=== PATIENT | female | born 2000 | race American Indian/Alaskan Native ===

== ENCOUNTER 2022-02-20 16:19 | Emergency (ER) | payer SELFPAY ==
[2022-02-20 17:57] LABS: Hemoglobin 10.3 gm/dl (10.1-14.3); Mean Corpuscular HGB Conc 31 % (30-34); Mean Corpuscular Volume 80 fl (79-97); Red Blood Count 4.14 M/mm3 (3.65-5.03); Red Cell Distribution Width 15.4 % (13.2-15.2)
[2022-02-20 18:22] LABS: Platelet Count 282 K/mm3 (140-440)
[2022-02-20 19:17] LABS: Alanine Aminotransferase 13 units/L (7-56); Albumin 4.5 g/dL (3.9-5); Blood Urea Nitrogen 6 mg/dL (7-17); Calcium 9.5 mg/dL (8.4-10.2); Hemolysis Index 159
[2022-02-20 19:20] LABS: BUN/Creatinine Ratio 9
[2022-02-20] MEDS ORDERED: methylPREDNISolone Sod Succinate 125 MG/2 ML INJ IV ONE (20:14)
[2022-02-20] MEDS ORDERED: diphenhydrAMINE 50 MG/ML VIAL IV STA (20:14)
[2022-02-20] MEDS ORDERED: ALBUTEROL 2.5 MG/3 ML NEBU IH ONE (20:14)
[2022-02-20] MEDS ORDERED: SODIUM CHLORIDE 0.9% 1000 ML 1,000 ML IV ONE (20:14)
--- NOTE | 2022-02-20 20:49 | XRay Report ---
CHEST 1 VIEW INDICATION / CLINICAL INFORMATION: sob. Dyspnea. FINDINGS: SUPPORT DEVICES: None. HEART / MEDIASTINUM: No significant abnormality. LUNGS / PLEURA: No significant pulmonary or pleural abnormality. No pneumothorax. ADDITIONAL FINDINGS: No significant additional findings. IMPRESSION: 1. No acute findings. Signer Name: Edison Damico MD Signed: 02/20/2022 8:44 PM Workstation Name: [email or web address]
[2022-02-21 02:22] VITALS: BP 114/79
== END 2022-02-21 02:21 | disposition home or self-care (01) ==
LOC: ED 16:19
DX: R11.2 Nausea with vomiting, unspecified (principal); Z53.21 Procedure and treatment not carried out due to patient leaving prior to being seen by health care provider
CPT/HCPCS: 36415; 71045; 80053; 83690; 84703; 85027; J1200; J2930; J7030; 96361; 96374; 96375; 99284